=== PATIENT | female | born 1950 | race Caucasian/White ===

== ENCOUNTER 2020-09-30 02:48 | Observation (INO) | payer MEDICARE ==
[~2020-09-30] VITALS: Ht 172.7 cm; Wt 120.5 kg
[~2020-09-30 02:48] MED LIST: ALBU18HF INH; AMLO-150 PO; CEFD300C37 PO; CLON-364 PO; GABA300C PO; HYDR1TAB53 PO; LOSA50TA2 PO; PANT40TA6 PO
[2020-09-30 02:55] VITALS: BP 142/71
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
[2020-09-30] MEDS ORDERED: IBUPROFEN 600 MG TABLET ONE (03:23)
[2020-09-30] MEDS ORDERED: LORazepam 1MG TABLET ONE (03:24)
[2020-09-30] MEDS ORDERED: IBUPROFEN 600 MG TABLET PO ONE (03:30)
[2020-09-30] MEDS ORDERED: LORazepam 1MG TABLET PO ONE (03:30)
--- NOTE | 2020-09-30 03:43 | NUR ---
EMS BROUGHT PTS SCOOTER FROM HER PLACE OF RESIDENCE
[2020-09-30] MEDS ORDERED: OMNIPAQUE 350 MG/ML, 100ML BOTTLE ONE (03:48)
--- NOTE | 2020-09-30 04:11 | NUR ---
PT ASLEEP IN BED, ALL NEEDS IN REACH, CALL LIGHT IN REACH, NAD AT THIS TIME
--- NOTE | 2020-09-30 06:25 | NUR ---
PT DISCHARGED TO [facility] UNDER AN ALI, CAB VOUCHER PROVIDED, PT INFORMED OF THE ALIAS THAT SHE IS GOING TO BE UNDER AND PTS SCOOTER BROUGHT IN BY EMS FOR PT TO USE
== END 2020-09-30 06:46 | disposition home or self-care (01) ==
LOC: ED 04:21 → EDIP 04:29 → INTOOBSV 04:29
PROVIDERS: ADMIT Emergency Medicine; ATTEND Emergency Medicine
DX: F41.1 Generalized anxiety disorder (principal); I10 Essential (primary) hypertension; F17.200 Nicotine dependence, unspecified, uncomplicated; F12.90 Cannabis use, unspecified, uncomplicated; Z79.899 Other long term (current) drug therapy
CPT/HCPCS: 99284; G0378; Q9967

== ENCOUNTER 2020-10-04 21:33 | Emergency (ER) | payer MEDICARE ==
[~2020-10-04] VITALS: Ht 172.7 cm; Wt 120.0 kg
[2020-10-04] MEDS ORDERED: KETOROLAC 30 MG/1 ML IM ONE (22:00)
[2020-10-04] MEDS ORDERED: KETOROLAC 30 MG/1 ML ONE (22:13)
--- NOTE | 2020-10-04 22:21 | NUR ---
REGENERATION OPERATOR RN: PT GIVEN MEDICATION PER MAR. TOLERATED WELL. PATIENT UPDATED ON PLAN OF CARE. GIVEN WARM BLANKETS AND ICE CHIPS. NO NOTED ADDITIONAL NEEDS A TTHIS TIME. WILL CONTINUE TO MONITOR. LAB AT BEDSIDE WITH PATIENT.
[2020-10-04 22:32] LABS: BASOPHILS % (AUTO) 1 % (0-1); EOSINOPHILS % (AUTO) 1 % (1-7); LYMPHOCYTES % (AUTO) 14 % (22-44); MEAN CORPUSCULAR HGB CONC 33.4 g/dL (32.4-35.8); MEAN PLATELET VOLUME 7.5 fL (7.4-10.4); MONOCYTES % (AUTO) 6 % (2-9); NEUTROPHILS % (AUTO) 78 % (42-75); PLATELET COUNT 327 x10^3/uL (130-400); RED BLOOD COUNT 3.34 x10^6/uL (3.82-5.3); RED CELL DISTRIBUTION WIDTH 16.3 % (9.6-15.2)
[2020-10-04 22:44] LABS: ANION GAP 3 mmol/L (5-15); CHLORIDE 109 mmol/L (98-107); CREATININE 1.44 mg/dL (0.55-1.02)
[2020-10-04 22:46] LABS: ALBUMIN 2.4 g/dL (3.4-5.0)
[2020-10-05 00:11] VITALS: BP 145/64
--- NOTE | 2020-10-05 01:17 | NUR ---
Discharge instructions given. Patient does not want to leave the hospital because she left her rosado with her friend. Offered patient a taxi voucher to her friend's house. Patient agreed. Wheeled patient out to the front and taxi called.
== END 2020-10-05 01:22 | disposition home or self-care (01) ==
LOC: ED 22:00
DX: G89.11 Acute pain due to trauma (principal); M25.511 Pain in right shoulder; J43.9 Emphysema, unspecified; F17.210 Nicotine dependence, cigarettes, uncomplicated; F10.129 Alcohol abuse with intoxication, unspecified; Z72.9 Problem related to lifestyle, unspecified; R00.0 Tachycardia, unspecified; I10 Essential (primary) hypertension; Z90.49 Acquired absence of other specified parts of digestive tract; W07.XXXA Fall from chair, initial encounter; Y93.89 Activity, other specified; Y92.89 Other specified places as the place of occurrence of the external cause; Y99.8 Other external cause status; Y90.0 Blood alcohol level of less than 20 mg/100 ml
CPT/HCPCS: 36415; 71045; 73030; 80048; 80320; 82040; 85025; 96372; 99284; J1885; Q0177; G0480

== ENCOUNTER 2020-11-06 12:10 | Inpatient (IN) | payer MEDICARE ==
[~2020-11-06] VITALS: Ht 172.7 cm; Wt 100.6 kg
--- NOTE | 2020-11-06 13:50 | NUR ---
VASCULAR US AT BEDSIDE AT THIS TIME.
[2020-11-06 13:58] LABS: ALANINE AMINOTRANSFERASE 19 U/L (12-78); ALBUMIN 3.2 g/dL (3.4-5.0); CALCIUM 9.1 mg/dL (8.5-10.1); CREATININE 1.45 mg/dL (0.55-1.02)
[2020-11-06] MEDS ORDERED: LORazepam 0.5MG TABLET PO ONE (14:00)
[2020-11-06 14:03] LABS: ALKALINE PHOSPHATASE 134 U/L (45-117); BILIRUBIN,TOTAL 0.4 mg/dL (0.2-1.0); TOTAL PROTEIN 8.1 g/dL (6.4-8.2)
[2020-11-06 14:18] LABS: ANION GAP 5 mmol/L (5-15); CHLORIDE 107 mmol/L (98-107)
[2020-11-06 14:33] LABS: BASOPHILS % (AUTO) 1 % (0-1); EOSINOPHILS % (AUTO) 1 % (1-7); LYMPHOCYTES % (AUTO) 19 % (22-44); MEAN CORPUSCULAR HEMOGLOBIN 33.8 pg (27.0-34.8); MEAN PLATELET VOLUME 8.6 fL (7.4-10.4); MONOCYTES % (AUTO) 10 % (2-9); NEUTROPHILS % (AUTO) 69 % (42-75); PLATELET COUNT 288 x10^3/uL (130-400); RED BLOOD COUNT 4.35 x10^6/uL (3.82-5.3); RED CELL DISTRIBUTION WIDTH 16.7 % (9.6-15.2)
[2020-11-06] MEDS ORDERED: LORazepam 0.5MG TABLET ONE (15:41)
--- NOTE | 2020-11-06 15:50 | NUR ---
BEDSIDE US IN ROOM AT THIS TIME. PT MEDICATED PER EMAR. WILL CONTINUE TO MONITOR.
--- NOTE | 2020-11-06 16:41 | NUR ---
PT RESTING IN BED AT THIS TIME. PT ASKING FOR FOOD. PT BP REMAINS ELEVATED. WILL CONTINUE TO MONITOR BP AND UPDATE ERP
--- NOTE | 2020-11-06 17:11 | NUR ---
PT O2 SAT 84% ON RA WHILE PT SLEEPING. PT PLACED ON 3L O2 PER N/C. PT REPOSITIONED IN BED FOR COMFORT
[2020-11-06] MEDS ORDERED: RIVAROXABAN 10 MG TABLET PO ONE (17:50)
[2020-11-06] MEDS ORDERED: LABETALOL 5MG/ML, 20ML IVPush PRN (17:52)
--- NOTE | 2020-11-06 17:58 | NUR ---
ANKLE VASC US STILL NO REPORT AVAILABLE. US CALLED, ATTEMPTING TO FIND REPORT. THEY WILL CALL THE ED BACK.
--- NOTE | 2020-11-06 18:00 | NUR ---
LINING BRUSHER HERE TO ASSIST IN GETTING REPORT WHICH IS IN INFINITE SYSTEM. ERP AWARE.
--- NOTE | 2020-11-06 19:09 | NUR ---
FIRST ENCOUNTER WITH PATIENT: PATIENT ASKING FOR FOOD. WILL ATTEMPT TO LOCATE FOOD FOR PATIENT. NO ADDITIONAL NEEDS REQUESTED AT THIS TIME. VSS. WILL CONTINUE TO MONITOR.
[2020-11-06] MEDS ORDERED: RIVAROXABAN 10 MG TABLET ONE (19:13)
--- NOTE | 2020-11-06 19:23 | NUR ---
PT GIVEN FOOD TRAY AND MEDICATED PER EMAR
[2020-11-06] MEDS ORDERED: morphine SULFATE 10 MG/ML, 1ML IVPush PRN (19:30)
[2020-11-06] MEDS ORDERED: ACETAMINOPHEN 325 MG TABLET PO PRN (19:30)
[2020-11-06] MEDS ORDERED: ONDANSETRON 2MG/ML, 2ML IVPush PRN (19:30)
[2020-11-06] MEDS ORDERED: ENALAPRILAT 1.25 MG/ML, 2ML IVPush PRN (19:30)
[2020-11-06] MEDS ORDERED: BACLOFEN 10 MG TABLET PO PRN (19:30)
[2020-11-06] MEDS ORDERED: SODIUM CHLORIDE 0.9% 1,000ML IVBOLUS ONE (19:30)
[2020-11-06] MEDS ORDERED: OXYcodone IR 5MG TABLET PO PRN (19:30)
[2020-11-06] MEDS ORDERED: ONDANSETRON ODT 4 MG PO PRN (19:30)
[2020-11-06] MEDS ORDERED: GABAPENTIN 300 MG CAPSULE PO PRN (19:30)
[2020-11-06] MEDS ORDERED: DIPHENHYDRAMINE 25 MG CAPSULE PO PRN (19:30)
[2020-11-06 20:14] VITALS: BP 139/77
[2020-11-07 01:23] VITALS: BP 127/70
[2020-11-07 06:24] LABS: BASOPHILS % (AUTO) 1 % (0-1); EOSINOPHILS % (AUTO) 3 % (1-7); LYMPHOCYTES % (AUTO) 20 % (22-44); MEAN CORPUSCULAR HEMOGLOBIN 34.1 pg (27.0-34.8); MEAN CORPUSCULAR HGB CONC 32.1 g/dL (32.4-35.8); MEAN PLATELET VOLUME 8.6 fL (7.4-10.4); MONOCYTES % (AUTO) 9 % (2-9); NEUTROPHILS % (AUTO) 67 % (42-75); PLATELET COUNT 268 x10^3/uL (130-400); RED CELL DISTRIBUTION WIDTH 16.8 % (9.6-15.2)
[2020-11-07 06:32] LABS: ANION GAP 3 mmol/L (5-15); CALCIUM 8.6 mg/dL (8.5-10.1); CHLORIDE 107 mmol/L (98-107); CREATININE 1.24 mg/dL (0.55-1.02)
[2020-11-07 07:12] VITALS: BP 180/97
[2020-11-07] MEDS: RIVAROXABAN 15 MG TABLET PO SCH ×2 (07:52→17:51)
[2020-11-07] MEDS ORDERED: SENNA/DOCUSATE TABLET PO SCH (09:00)
[2020-11-07] MEDS ORDERED: LISINOPRIL 20 MG TABLET PO SCH (09:00)
[2020-11-07 09:16] VITALS: BP 164/96
[2020-11-07] MEDS ORDERED: ENALAPRILAT 1.25 MG/ML, 1ML ONE (13:22)
[2020-11-07] MEDS ORDERED: LORazepam 1MG TABLET PO ONE (13:30)
[2020-11-07 13:46] VITALS: BP 155/83
[2020-11-07] MEDS ORDERED: LOSA50TA2 PO (15:08)
[2020-11-07] MEDS ORDERED: ALBU18HF INH (15:08)
[2020-11-07] MEDS ORDERED: AMLO-150 PO (15:08)
[2020-11-07] MEDS ORDERED: RIVA15TA PO (15:08)
[2020-11-07] MEDS ORDERED: GABA300C PO (15:08)
== END 2020-11-07 19:04 | disposition home or self-care (01) | DRG 299 ==
LOC: ED 12:16 → EDIP 18:01 → 4WST 19:50
PROVIDERS: ADMIT Family Medicine; ATTEND Internal Medicine
DX: I82.461 Acute embolism and thrombosis of right calf muscular vein (principal); N17.0 Acute kidney failure with tubular necrosis; E44.0 Moderate protein-calorie malnutrition; I82.401 Acute embolism and thrombosis of unspecified deep veins of right lower extremity; D75.89 Other specified diseases of blood and blood-forming organs; E66.01 Morbid (severe) obesity due to excess calories; F41.1 Generalized anxiety disorder; J44.9 Chronic obstructive pulmonary disease, unspecified; Z66 Do not resuscitate; G62.9 Polyneuropathy, unspecified; I10 Essential (primary) hypertension; Z91.19 Patient's noncompliance with other medical treatment and regimen; Z91.14 Patient's other noncompliance with medication regimen; Z79.899 Other long term (current) drug therapy; Z68.33 Body mass index [BMI] 33.0-33.9, adult; Z88.0 Allergy status to penicillin; Z71.6 Tobacco abuse counseling; Z90.49 Acquired absence of other specified parts of digestive tract
CPT/HCPCS: 36415; 80048; 80053; 85025; 93005; 93922; 93970; 99285; G0378; J7030